=== PATIENT | female | born 1955 | race Caucasian/White ===

== ENCOUNTER 2019-04-27 11:32 | Outpatient (CLI) | payer OTHER | END 2019-04-27 11:38 | disposition home or self-care (01) | LOC: RAD 11:32 | DX: J45.998 Other asthma (principal) ==

== ENCOUNTER 2019-07-18 11:16 | Outpatient (CLI) | payer OTHER | END 2019-07-18 11:27 | disposition home or self-care (01) | LOC: MAMO-SONO 11:16 | DX: M81.0 Age-related osteoporosis without current pathological fracture (principal); Z12.31 Encounter for screening mammogram for malignant neoplasm of breast; R92.0 Mammographic microcalcification found on diagnostic imaging of breast ==

== ENCOUNTER 2020-07-29 13:53 | Outpatient (CLI) | payer OTHER | END 2020-07-29 13:58 | disposition home or self-care (01) | LOC: RAD 13:53 | PROVIDERS: ATTEND Specialist | DX: J45.998 Other asthma (principal); Q33.8 Other congenital malformations of lung ==

== ENCOUNTER 2020-08-04 14:37 | Emergency (ER) | payer OTHER ==
[~2020-08-04] VITALS: Ht 160 cm; Wt 68.0 kg
[2020-08-04] MEDS ORDERED: LEVOTHYROXINE88 MC1 (15:23)
== END 2020-08-04 19:15 | disposition home or self-care (01) ==
LOC: ER 14:37
DX: S01.82XA Laceration with foreign body of other part of head, initial encounter (principal); S80.01XA Contusion of right knee, initial encounter; W18.09XA Striking against other object with subsequent fall, initial encounter; Y93.89 Activity, other specified; Y92.017 Garden or yard in single-family (private) house as the place of occurrence of the external cause; Y99.8 Other external cause status

== ENCOUNTER 2020-08-13 14:17 | Emergency (ER) | payer OTHER ==
[~2020-08-13] VITALS: Ht 152.4 cm; Wt 68.0 kg
[~2020-08-13 14:17] MED LIST: LEVOTHYROXINE88 MC1
== END 2020-08-13 15:22 | disposition home or self-care (01) ==
LOC: ER 14:17
DX: Z48.02 Encounter for removal of sutures (principal)

== ENCOUNTER 2020-10-22 09:44 | Outpatient (CLI) | payer OTHER | END 2020-10-22 09:54 | disposition home or self-care (01) | LOC: MAMO-SONO 09:44 | PROVIDERS: ATTEND Specialist | DX: Z12.31 Encounter for screening mammogram for malignant neoplasm of breast (principal); Z87.898 Personal history of other specified conditions; N64.89 Other specified disorders of breast; K75.81 Nonalcoholic steatohepatitis (NASH) ==

== ENCOUNTER 2020-11-08 12:21 | Outpatient (CLI) | payer OTHER | END 2020-11-08 12:42 | disposition home or self-care (01) | LOC: SONOGRAMA 12:21 | PROVIDERS: ATTEND Surgery | DX: N60.11 Diffuse cystic mastopathy of right breast (principal); N60.12 Diffuse cystic mastopathy of left breast ==

== ENCOUNTER 2021-02-04 11:00 | Outpatient (CLI) | payer OTHER | END 2021-02-04 11:06 | disposition home or self-care (01) | LOC: SONOGRAMA 11:00 → MAMO-SONO 11:00 → SONOGRAMA 11:06 | PROVIDERS: ATTEND Specialist | DX: M25.371 Other instability, right ankle (principal) ==

== ENCOUNTER 2021-05-07 08:00 | Outpatient (CLI) | payer OTHER | END 2021-05-07 08:30 | disposition home or self-care (01) | LOC: PPH VACUNA 08:00 | PROVIDERS: ATTEND Emergency Medicine Pediatric Emergency Medicine | DX: Z23 Encounter for immunization (principal) ==

== ENCOUNTER 2021-11-19 11:47 | Outpatient (CLI) | payer OTHER | END 2021-11-19 11:55 | disposition home or self-care (01) | LOC: MAMO-SONO 11:47 | PROVIDERS: ATTEND Specialist | DX: Z12.31 Encounter for screening mammogram for malignant neoplasm of breast (principal) ==

== ENCOUNTER 2022-07-20 09:38 | Outpatient (CLI) | payer OTHER | END 2022-07-20 09:48 | disposition home or self-care (01) | LOC: LAB 09:38 | PROVIDERS: ATTEND Specialist | DX: E03.8 Other specified hypothyroidism (principal); R07.89 Other chest pain; E11.21 Type 2 diabetes mellitus with diabetic nephropathy; N39.9 Disorder of urinary system, unspecified; Z13.220 Encounter for screening for lipoid disorders; D64.89 Other specified anemias; M00.80 Arthritis due to other bacteria, unspecified joint; E11.69 Type 2 diabetes mellitus with other specified complication; N39.0 Urinary tract infection, site not specified; K75.81 Nonalcoholic steatohepatitis (NASH); D51.0 Vitamin B12 deficiency anemia due to intrinsic factor deficiency ==

== ENCOUNTER 2022-07-20 10:45 | Outpatient (CLI) | payer OTHER | END 2022-07-20 16:54 | disposition home or self-care (01) | LOC: SONOGRAMA 10:45 | PROVIDERS: ATTEND Specialist | DX: I13.2 Hypertensive heart and chronic kidney disease with heart failure and with stage 5 chronic kidney disease, or end stage renal disease (principal) ==

== ENCOUNTER → 2022-07-22 10:39 | Outpatient (CLI) | payer OTHER | END | disposition home or self-care (01) | LOC: LAB 10:39 | PROVIDERS: ATTEND Specialist | DX: N39.9 Disorder of urinary system, unspecified (principal); K75.81 Nonalcoholic steatohepatitis (NASH); D51.0 Vitamin B12 deficiency anemia due to intrinsic factor deficiency ==

== ENCOUNTER → 2022-09-24 | Outpatient (CLI) | payer OTHER | END | disposition home or self-care (01) | LOC: RAD 13:41 | PROVIDERS: ATTEND Specialist | DX: J45.998 Other asthma (principal) ==

== ENCOUNTER 2022-10-23 13:51 | Outpatient (CLI) | payer OTHER | END 2022-10-23 14:02 | disposition home or self-care (01) | LOC: NUCLEAR 13:51 | PROVIDERS: ATTEND Specialist | DX: M81.0 Age-related osteoporosis without current pathological fracture (principal); Z13.820 Encounter for screening for osteoporosis ==

== ENCOUNTER 2022-11-27 11:02 | Outpatient (CLI) | payer OTHER | END 2022-11-27 11:08 | disposition home or self-care (01) | LOC: MAMO-SONO 11:02 | PROVIDERS: ATTEND Obstetrics & Gynecology | DX: Z12.31 Encounter for screening mammogram for malignant neoplasm of breast (principal); N60.11 Diffuse cystic mastopathy of right breast; N60.12 Diffuse cystic mastopathy of left breast ==

== ENCOUNTER 2023-04-09 07:32 | Outpatient (CLI) | payer OTHER | END 2023-04-09 07:33 | disposition home or self-care (01) | LOC: NUCLEAR 07:32 | PROVIDERS: ATTEND Internal Medicine | DX: I25.118 Atherosclerotic heart disease of native coronary artery with other forms of angina pectoris (principal); E78.2 Mixed hyperlipidemia; R06.00 Dyspnea, unspecified | CPT/HCPCS: 78452; 93017; A9500; J0153 ==

== ENCOUNTER 2024-01-25 14:12 | Outpatient (CLI) | payer OTHER | END 2024-01-25 14:23 | disposition home or self-care (01) | LOC: MAMO-SONO 14:12 | PROVIDERS: ATTEND Specialist | DX: N60.11 Diffuse cystic mastopathy of right breast (principal); N60.12 Diffuse cystic mastopathy of left breast; R06.00 Dyspnea, unspecified; Z12.31 Encounter for screening mammogram for malignant neoplasm of breast ==

== ENCOUNTER 2024-09-05 13:05 | Outpatient (CLI) | payer OTHER | END 2024-09-05 13:11 | disposition home or self-care (01) | LOC: SONOGRAMA 13:05 | PROVIDERS: ATTEND Specialist | DX: E03.9 Hypothyroidism, unspecified (principal) ==

== ENCOUNTER → 2024-11-01 | Outpatient (CLI) | payer OTHER | END | disposition home or self-care (01) | LOC: RAD 10:20 | PROVIDERS: ATTEND Specialist | DX: S83.104A Unspecified dislocation of right knee, initial encounter (principal); S89.91XA Unspecified injury of right lower leg, initial encounter ==

== ENCOUNTER 2025-02-20 12:01 | Outpatient (CLI) | payer OTHER | END 2025-02-20 12:04 | disposition home or self-care (01) | LOC: MAMO-SONO 12:01 | PROVIDERS: ATTEND Specialist | DX: N60.39 Fibrosclerosis of unspecified breast (principal); Z12.39 Encounter for other screening for malignant neoplasm of breast; Z12.31 Encounter for screening mammogram for malignant neoplasm of breast ==